=== PATIENT | male | born 1945 | race American Indian/Alaskan Native ===

== ENCOUNTER 2017-07-13 09:57 | Outpatient (CLI) | payer MEDICARE ==
--- NOTE | 2017-07-13 11:29 | Cat Scan Report ---
CT ABDOMEN PELVIS WITHOUT CONTRAST: HISTORY: Hydronephrosis. COMPARISON: none. TECHNIQUE: Helical CT in 1.25mm intervals without IV contrast. Sagittal and coronal reconstructions. FINDINGS: Lung bases: Borderline heart size. Small complex right pleural effusion with evidence of loculation. Liver: Normal. Biliary system: Normal. Pancreas: Normal. Spleen: Normal. Kidneys/ureters/bladder: Bilateral renal cysts are identified. The largest cyst within the left kidney arises from the renal sinus and measures 2.7 cm. There are two 1 cm cysts in the mid left kidney. A 3 mm calyceal stone is also identified at the superior pole of the left kidney. There is no evidence for ureteral stones or hydronephrosis. The bladder is partially filled but unremarkable. Adrenal glands: Normal. Aorta: Moderate to severe atherosclerotic calcifications are noted throughout the aorta and major branches. No aneurysm. Intestines: No evidence for obstruction or focal inflammation. Mild diverticulosis of the colon is noted. Appendix: Normal. Pelvic viscera: Normal. Ascites: None. Adenopathy: None. Musculoskeletal: The bony structures are demineralized with degenerative change. No fracture or suspicious bony lesion. IMPRESSION: No evidence for hydronephrosis. Bilateral renal cysts. 3 mm left calyceal stone. Small, complex right pleural effusion. Mild diverticulosis of the colon. Advanced atherosclerotic disease throughout the aorta and major branches
== END 2017-07-13 09:58 | disposition home or self-care (01) ==
LOC: CT 09:57
PROVIDERS: ATTEND Urology
DX: N28.1 Cyst of kidney, acquired (principal); N20.0 Calculus of kidney; J90 Pleural effusion, not elsewhere classified; K57.30 Diverticulosis of large intestine without perforation or abscess without bleeding; I70.0 Atherosclerosis of aorta; M18.0 Bilateral primary osteoarthritis of first carpometacarpal joints
CPT/HCPCS: 74176

== ENCOUNTER 2018-09-28 07:34 | Emergency (ER) | payer MEDICARE ==
--- NOTE | 2018-09-28 08:31 | Emergency Department Report ---
Head Injury w/o Laceration - HPI Chief Complaint: Fall Stated Complaint: FALL Time Seen by Provider: 09/28/18 08:29 Occurred When: Today Mechanism: Direct Blow Location: Frontal Severity: mild Head Inj w/o Lac: Yes Headache, Yes Bruising, Yes Break in Skin, Yes Bleeding, No Loss of Consciousness, No Nausea, No Blurred Vision, No Altered Mental Status, No Focal Deficit, No Swelling ED General PMH - Social History Smoking Status: Unknown if ever smoked Head Injury W/O Lac Exam - Exam General: Vital signs noted. No distress. Alert and acting appropriately. ED Disposition Condition: Stable Referrals: CLINTON GARCIA MD [Primary Care Provider] - 3-5 Days
--- NOTE | 2018-09-28 09:32 | Cat Scan Report ---
CT CERVICAL SPINE WITHOUT CONTRAST HISTORY: Fall and neck pain. COMPARISON: 11/02/2015 TECHNIQUE: CT images of the cervical spine were obtained without contrast. Sagittal and coronal refo rmats were performed. CONTRAST: None. FINDINGS: Alignment: Normal. Vertebrae:No significant abnormality. Disc Spaces: Mild degenerative disc disease from C4-5 through C6-7. Small anterior osteophytes with p reservation of the disc spaces. Facet Joints:No significant abnormality. Craniocervical Junction:No significant abnormality. Prevertebral Soft Tissues:No significant abnormality. Lung Apices: No significant abnormality. Additional Findings: No fracture or subluxation IMPRESSION: 1. Negative study. Signer Name: Zbigniew Meehan MD Signed: 09/28/2018 9:27 AM Workstation Name: [id number]
--- NOTE | 2018-09-28 09:33 | Cat Scan Report ---
CT HEAD WITHOUT CONTRAST HISTORY: head injury. fall. abrasion. TECHNIQUE: Axial imaging performed from the skull apex through the skull base without the use of con trast. All CT scans at this location are performed using CT dose reduction for ALARA by means of aut omated exposure control. COMPARISON: 11/02/2015 FINDINGS: Parenchyma: No acute intracranial hemorrhage or parenchymal abnormality.. Mild hypoattenuation thro ughout the white matter is noted and consistent with chronic microvascular ischemic disease. Chronic 5 mm infarct in the left messer radiata is unchanged. Chronic 1.7 x 0.5 cm infarct in the posterior l eft cerebellum appears to be new since 2016. Ventricles: There is mild diffuse brain atrophy with commensurate ventricular enlargement which is l ikely age appropriate. Soft tissues: Soft tissues including the orbits appear normal. Bones: No acute osseous abnormality. Sinuses: Sinuses and mastoid air cells are clear. IMPRESSION: No acute abnormality. Mild diffuse volume loss and chronic white matter changes. Chronic focal infarcts in the left messer radiata and left cerebellum. Signer Name: Go Gilbert Jr, MD Signed: 09/28/2018 9:29 AM Workstation Name: [id number]
--- NOTE | 2018-09-28 09:50 | Emergency Department Report ---
ED General Adult HPI - General Chief complaint: Fall Stated complaint: FALL Time Seen by Provider: 09/28/18 08:29 Source: EMS Mode of arrival: Stretcher Limitations: Physical Limitation - History of Present Illness Initial comments: Patient is a 73-year-old male that presents to emergency room with complaints of fall and head injury. Patient denies loss of consciousness. Patient states he fell out of bed reaching for the radio. Patient states he had bleeding but bleeding was controlled direct pressure by the group home staff. Patient brought in by EMS. Tetanus up-to-date -: Sudden Location: head Severity scale (0 -10): 0 Consistency: now resolved Improves with: none Worsens with: none Associated Symptoms: denies other symptoms. denies: confusion, chest pain, cou gh, diaphoresis, fever/chills, headaches, loss of appetite, malaise, nausea/vomiting, rash, seizure, shortness of breath, syncope, weakness Treatments Prior to Arrival: none - Related Data Home Medications Medication Instructions Recorded Confirmed Last Taken Acetaminophen [Acetaminophen TAB] 2 tab PO Q6HR PRN 08/09/13 08/24/13 Unknown Docusate Sodium [Colace CAP] 100 mg PO BID 08/09/13 08/24/13 Unknown Folic Acid [Folvite] 1 mg PO DAILY 08/09/13 08/24/13 Unknown Isosorbide Dinitrate 30 mg PO DAILY 08/09/13 08/24/13 Unknown Lactobacillus Acidophilus 1 cap PO TID 08/09/13 08/24/13 Unknown [Acidophilus] Lactulose 30 ml PO DAILY 08/09/13 08/24/13 Unknown Magnesium Hydroxide [Milk of 30 ml PO DAILY PRN 08/09/13 08/24/13 Unknown Magnesia] Multivitamin [Multi-Vitamin Daily] 1 each PO DAILY 08/09/13 08/24/13 Unknown Omeprazole Magnesium [PriLOSEC Otc] 20 mg PO DAILY 08/09/13 08/24/13 Unknown Sertraline HCl 50 mg PO DAILY 08/09/13 08/24/13 Unknown Simvastatin (Nf) [Zocor TAB] 40 mg PO HS 08/09/13 08/24/13 Unknown Thiamine [Vitamin B-1] 100 mg PO DAILY 08/09/13 08/24/13 Unknown Aspirin 325 mg PO DAILY 08/24/13 08/24/13 Unknown Previous Rx's Medication Instructions Recorded Last Taken Type amLODIPine [Norvasc] 10 mg PO HS #30 tablet 08/22/13 Unknown Rx Allergies Allergy/AdvReac Type Severity Reaction Status Date / Time Sulfa (Sulfonamide Allergy Unknown Verified 11/02/15 15:52 Antibiotics) sulfadiazine [Sulfadiazine] Allergy Unknown Verified 11/02/15 15:52 ED Review of Systems ROS: Stated complaint: FALL Other details as noted in HPI Constitutional: denies: chills, fever Eyes: denies: eye pain, eye discharge, vision change ENT: denies: ear pain, throat pain Respiratory: denies: cough, shortness of breath, wheezing Cardiovascular: denies: chest pain, palpitations Endocrine: no symptoms reported Gastrointestinal: denies: abdominal pain, nausea, diarrhea Genitourinary: denies: urgency, dysuria Musculoskeletal: denies: back pain, joint swelling, arthralgia Skin: denies: rash, lesions Neurological: denies: headache, weakness, paresthesias Psychiatric: denies: anxiety, depression Hematological/Lymphatic: denies: easy bleeding, easy bruising ED Past Medical Hx - Past Medical History Previous Medical History?: Yes Hx Hypertension: Yes Hx Congestive Heart Failure: Yes Hx Diabetes: Yes Hx Renal Disease: Yes Hx Dementia: Yes Additional medical history: Schizophrenia, dementia, type 2 diabetes, hypertension, wernicke's encephalopathy alcohol abuse - Surgical History Past Surgical History?: No - Family History Family history: no significant - Social History Smoking Status: Never Smoker Substance Use Type: None - Medications Home Medications: Home Medications Medication Instructions Recorded Confirmed Last Taken Type Acetaminophen [Acetaminophen TAB] 2 tab PO Q6HR PRN 08/09/13 08/24/13 Unknown History Docusate Sodium [Colace CAP] 100 mg PO BID 08/09/13 08/24/13 Unknown History Folic Acid [Folvite] 1 mg PO DAILY 08/09/13 08/24/13 Unknown History Isosorbide Dinitrate 30 mg PO DAILY 08/09/13 08/24/13 Unknown History Lactobacillus Acidophilus 1 cap PO TID 08/09/13 08/24/13 Unknown History [Acidophilus] Lactulose 30 ml PO DAILY 08/09/13 08/24/13 Unknown History Magnesium Hydroxide [Milk of 30 ml PO DAILY PRN 08/09/13 08/24/13 Unknown History Magnesia] Multivitamin [Multi-Vitamin Daily] 1 each PO DAILY 08/09/13 08/24/13 Unknown History Omeprazole Magnesium [PriLOSEC Otc] 20 mg PO DAILY 08/09/13 08/24/13 Unknown History Sertraline HCl 50 mg PO DAILY 08/09/13 08/24/13 Unknown History Simvastatin (Nf) [Zocor TAB] 40 mg PO HS 08/09/13 08/24/13 Unknown History Thiamine [Vitamin B-1] 100 mg PO DAILY 08/09/13 08/24/13 Unknown History amLODIPine [Norvasc] 10 mg PO HS #30 tablet 08/22/13 08/24/13 Unknown Rx Aspirin 325 mg PO DAILY 08/24/13 08/24/13 Unknown History ED Physical Exam - General Limitations: Physical Limitation General appearance: alert, in no apparent distress - Head Head exam: Present: atraumatic, normocephalic - Eye Eye exam: Present: normal appearance, PERRL, EOMI Pupils: Present: normal accommodation - ENT ENT exam: Present: mucous membranes moist - Neck Neck exam: Present: normal inspection - Respiratory Respiratory exam: Present: normal lung sounds bilaterally. Absent: respiratory distress - Cardiovascular Cardiovascular Exam: Present: regular rate, normal rhythm. Absent: systolic murmur, diastolic murmur, rubs, gallop - GI/Abdominal GI/Abdominal exam: Present: soft, normal bowel sounds - Rectal Rectal exam: Present: deferred - Extremities Exam Extremities exam: Present: normal inspection - Back Exam Back exam: Present: normal inspection - Neurological Exam Neurological exam: Present: alert, oriented X3 - Psychiatric Psychiatric exam: Present: normal affect, normal mood - Skin Skin exam: Present: warm, dry, normal color, other (2 cm laceration above left eye. Bleeding is controlled. ). Absent: rash ED Course Vital Signs 09/28/18 09/28/18 09/28/18 07:38 07:45 07:47 Temperature Pulse Rate 78 73 72 Respiratory 17 23 18 Rate Blood Pressure 130/65 Blood Pressure 117/72 [Left] O2 Sat by Pulse 98 95 100 Oximetry 09/28/18 09/28/18 09/28/18 07:52 08:15 08:51 Temperature 98.6 F Pulse Rate 56 L 63 Respiratory 15 21 15 Rate Blood Pressure 122/68 Blood Pressure 130/65 [Left] O2 Sat by Pulse 100 100 100 Oximetry 09/28/18 09/28/18 09/28/18 09:45 10:00 10:45 Temperature Pulse Rate 81 80 79 Respiratory 22 20 20 Rate Blood Pressure 136/69 130/73 137/72 Blood Pressure [Left] O2 Sat by Pulse 99 97 100 Oximetry 09/28/18 09/28/18 11:45 12:15 Temperature Pulse Rate 52 L 75 Respiratory 17 17 Rate Blood Pressure 142/56 146/78 Blood Pressure [Left] O2 Sat by Pulse 97 97 Oximetry - Reevaluation(s) Reevaluation #1: See procedure note for laceration closure. Discussed all results with patient. Patient is stable for discharge. Patient will be discharged home. Patient agrees to plan of care. Patient given discharge instructions. Patient voiced understanding of discharge instructions. 09/28/18 09:47 - Laceration /Wound Repair Left Head Wound Location: head Wound's Depth, Shape: superficial Wound Explored: clean Betadine Prep?: Yes Wound Repaired With: Dermabond Sterile Dressing Applied?: Yes Progress: Site cleaned and edges well approximated and Dermabond applied. Patient tolerated procedure without difficulty. ED Medical Decision Making - Radiology Data Radiology results: report reviewed CT CERVICAL SPINE WITHOUT CONTRAST HISTORY: Fall and neck pain. COMPARISON: 11/02/2015 TECHNIQUE: CT images of the cervical spine were obtained without contrast. Sagittal and coronal reformats were performed. CONTRAST: None. FINDINGS: Alignment: Normal. Vertebrae:No significant abnormality. Disc Spaces: Mild degenerative disc disease from C4-5 through C6-7. Small anterior osteophytes with preservation of the disc spaces. Facet Joints:No significant abnormality. Craniocervical Junction:No significant abnormality. Prevertebral Soft Tissues:No significant abnormality. Lung Apices: No significant abnormality. Additional Findings: No fracture or subluxation IMPRESSION: 1. Negative study. CT HEAD WITHOUT CONTRAST HISTORY: head injury. fall. abrasion. TECHNIQUE: Axial imaging performed from the skull apex through the skull base without the use of contrast. All CT scans at this location are performed using CT dose reduction for ALARA by means of automated exposure control. COMPARISON: 11/02/2015 FINDINGS: Parenchyma: No acute intracranial hemorrhage or parenchymal abnormality.. Mild hypoattenuation throughout the white matter is noted and consistent with chronic microvascular ischemic disease. Chronic 5 mm infarct in the left messer radiata is unchanged. Chronic 1.7 x 0.5 cm infarct in the posterior left cerebellum appears to be new since 2016. Ventricles: There is mild diffuse brain atrophy with commensurate ventricular enlargement which is likely age appropriate. Soft tissues: Soft tissues including the orbits appear normal. Bones: No acute osseous abnormality. Sinuses: Sinuses and mastoid air cells are clear. IMPRESSION: No acute abnormality. Mild diffuse volume loss and chronic white matter changes. Chronic focal infarcts in the left messer radiata and left cerebellum. - Medical Decision Making Patient is a 73-year-old male presents emergency room for evaluation of left eye laceration and head injury. Patient had a CT scan of head and neck. Patient's CT scan of head and neck were negative. Patient's left forehead laceration closed with Dermabond, see procedure note. Patient had a sterile dressing placed over site. Patient given signs of infection to watch out for. Patient will be discharged back to his group home. - Differential Diagnosis fall. Head injury. Laceration Critical care attestation.: If time is entered above; I have spent that time in minutes in the direct care of this critically ill patient, excluding procedure time. ED Disposition Clinical Impression: Head injury Qualifiers: Encounter type: initial encounter Qualified Code(s): S09.90XA - Unspecified injury of head, initial encounter Laceration of forehead Qualifiers: Encounter type: initial encounter Qualified Code(s): S01.81XA - Laceration without foreign body of other part of head, initial encounter Disposition: DC-01 TO HOME OR SELFCARE Is pt being admited?: No Does the pt Need Aspirin: No Condition: Stable Instructions: Laceration (ED), Skin Adhesive Care (ED) Additional Instructions: Patient to be discharged back to his group home. Patient to follow-up with primary care in 2-3 days. Patient to take Tylenol or ibuprofen when necessary for pain. Patient to return to ER if condition worsens. Patient to take meds as directed. Patient to increase water. Patient to rest. Patient to continue all meds. Referrals: CLINTON GARCIA MD [Primary Care Provider] - 2-3 Days Time of Disposition: 10:05
[2018-09-28 12:27] VITALS: BP 146/78
== END 2018-09-28 12:27 | disposition home or self-care (01) ==
LOC: ED 07:34
DX: S01.81XA Laceration without foreign body of other part of head, initial encounter (principal); I11.0 Hypertensive heart disease with heart failure; I50.9 Heart failure, unspecified; E11.9 Type 2 diabetes mellitus without complications; F20.9 Schizophrenia, unspecified; Z79.899 Other long term (current) drug therapy; Z79.82 Long term (current) use of aspirin; Z88.2 Allergy status to sulfonamides; W06.XXXA Fall from bed, initial encounter; Y93.89 Activity, other specified; Y92.89 Other specified places as the place of occurrence of the external cause; Y99.8 Other external cause status
CPT/HCPCS: 70450; 72125; 99283